=== PATIENT | female | born 1960 | race Caucasian/White ===

== ENCOUNTER → 2016-05-02 | Outpatient (CLI) | payer BC | LOC: MC.RAD 11:20 | DX: Z12.31 Encounter for screening mammogram for malignant neoplasm of breast (principal) ==

== ENCOUNTER → 2017-05-05 | Outpatient (CLI) | payer BC | LOC: MC.RAD 07:00 | DX: Z12.31 Encounter for screening mammogram for malignant neoplasm of breast (principal) ==

== ENCOUNTER 2017-07-13 06:47 | Emergency (ER) | payer BC ==
[~2017-07-13] VITALS: Ht 165.1 cm; Wt 58.2 kg
[2017-07-13 06:55] VITALS: TEMP 97.8
[2017-07-13 07:49] LABS: BASO % 0.6 % (0.0-2.0); EOS # 0.1 (0.0-0.7); EOS % 1.3 % (0-4.0); GRAN # 3.5 (1.4-6.5); HEMATOCRIT 37.4 % (37.0-47.0); HEMOGLOBIN 12.7 g/dl (12.5-16.0); LYMPH # 1.3 (1.2-3.4); LYMPH % 25.4 % (20.0-51.0); MEAN CELL VOLUME 86 fl (80.0-100.0); MEAN CORPUSCULAR HEMOGLOBIN 29 pg (27.0-31.0); MEAN CORPUSCULAR HGB CONC 34 g/dl (33.0-37.0); MEAN PLATELET VOLUME 11.1 fl (7.4-10.4); MONO # 0.3 (0.1-0.6); MONO % 5.5 % (1.7-9.3); PLATELET COUNT 177 K/mm3 (130-400); RED BLOOD COUNT 4.34 M/mm3 (4.10-5.30); REDCELL DISTRIBUTION WIDTH-CV 13.6 % (11.5-14.5)
[2017-07-13 07:58] LABS: ALANINE AMINOTRANSFERASE 23 U/L (9-52); ALBUMIN 3.8 gm/dL (3.5-5.0); ALKALINE PHOSPHATASE 77 U/L (50-136); ANION GAP 11 mmol/L (7-16); AST,SGOT 18 U/L (15-37); BILIRUBIN,TOTAL 0.6 mg/dL (0.0-1.0); BLOOD UREA NITROGEN 17 mg/dL (7-17); CARBON DIOXIDE 28 mmol/L (22-30); CHLORIDE 102 mmol/L (98-107); CREATININE, serum 0.55 mg/dL (0.52-1.25); GLUCOSE 94 mg/dL (74-106); POTASSIUM 3.5 mmol/L (3.4-5.0); SODIUM 141 mmol/L (137-145); TOTAL PROTEIN 6.7 gm/dL (6.4-8.2)
[2017-07-13 08:12] LABS: C-REACTIVE PROTEIN < 0.5 mg/dL (0.0-0.9)
[2017-07-13 08:29] LABS: COLLECTION METHOD CLEAN CATCH
[2017-07-13 08:33] LABS: MUCOUS Present /lpf; PH 7 (5-8); SQUAMOUS EPITHELIAL 0-2 /hpf; URINE APPEARANCE Clear; URINE BACTERIA None Seen /hpf; URINE BILIRUBIN Negative (NEGATIVE); URINE BLOOD Negative (NEGATIVE); URINE COLOR Straw; URINE GLUCOSE Negative (NEGATIVE); URINE KETONE Negative (NEGATIVE); URINE LEUKOCYTE ESTERASE Negative (NEGATIVE); URINE NITRATE Negative (NEGATIVE); URINE PROTEIN(semi-quant) Negative (NEGATIVE); URINE RBC None Seen /hpf; URINE UROBILINOGEN Negative (NEGATIVE)
[2017-07-13] MEDS ORDERED: ANTIVERT 25MG25 MG PO (09:01)
[2017-07-13 09:13] VITALS: BP 107/72; PULSE 86
== END 2017-07-13 09:14 | disposition home or self-care (01) ==
LOC: COL.ER 06:47
PROVIDERS: Nurse Practitioner
DX: R42 Dizziness and giddiness (principal); Z90.710 Acquired absence of both cervix and uterus
CPT/HCPCS: J2405; J7030

== ENCOUNTER → 2018-05-25 | Outpatient (CLI) | payer BC ==
[~2018-05-25] MED LIST: ANTIVERT 25MG25 MG PO
== END ==
LOC: COL.RAD 05-18 14:45
DX: M75.111 Incomplete rotator cuff tear or rupture of right shoulder, not specified as traumatic (principal); M25.411 Effusion, right shoulder

== ENCOUNTER → 2018-06-02 | Outpatient (CLI) | payer BC | LOC: MC.RAD 08:15 | DX: Z12.31 Encounter for screening mammogram for malignant neoplasm of breast (principal) ==

== ENCOUNTER → 2019-07-12 | Outpatient (CLI) | payer BC | LOC: MC.RAD 06-10 08:30 | DX: Z12.31 Encounter for screening mammogram for malignant neoplasm of breast (principal) ==

== ENCOUNTER → 2020-02-09 | Outpatient (CLI) | payer BC | LOC: COL.RAD 15:04 | DX: R59.0 Localized enlarged lymph nodes (principal) ==

== ENCOUNTER 2020-05-04 06:56 | Observation (INO) | payer BC ==
[~2020-05-04] VITALS: Ht 172.7 cm; Wt 65.9 kg
[2020-05-04 07:35] LABS: BASO % 0.7 % (0.0-2.0); EOS # 0.1 (0.0-0.7); EOS % 3.2 % (0-4.0); GRAN # 2.4 (1.4-6.5); HEMATOCRIT 37.1 % (37.0-47.0); LYMPH # 1.4 (1.2-3.4); LYMPH % 33.2 % (20.0-51.0); MEAN CELL VOLUME 84 fl (80.0-100.0); MEAN CORPUSCULAR HEMOGLOBIN 27 pg (27.0-31.0); MEAN CORPUSCULAR HGB CONC 32 g/dl (33.0-37.0); MEAN PLATELET VOLUME 11.2 fl (7.4-10.4); MONO # 0.3 (0.1-0.6); MONO % 6.7 % (1.7-9.3); PLATELET COUNT 155 K/mm3 (130-400); RED BLOOD COUNT 4.44 M/mm3 (4.10-5.30); REDCELL DISTRIBUTION WIDTH-CV 15.8 % (11.5-14.5)
[2020-05-04 07:39] LABS: INR 1.1 (0.8-3.0)
[2020-05-04 07:42] LABS: PARTIAL THROMBOPLASTIN TIME 34.2 SECONDS (26.0-37.0)
[2020-05-04 07:51] LABS: ALBUMIN 3.4 gm/dL (3.5-5.0); BILIRUBIN,TOTAL 0.6 mg/dL (0.0-1.0); CALCIUM 8.6 mg/dL (8.4-10.2); CREATININE, serum 0.58 (0.52-1.25); POTASSIUM 3.9 mmol/L (3.4-5.0); TOTAL PROTEIN 6.1 gm/dL (6.4-8.2)
[2020-05-04 09:05] LABS: COLLECTION METHOD CLEAN CATCH
[2020-05-04 09:13] LABS: PH 8 (5-8); SQUAMOUS EPITHELIAL 0-2 /hpf; URINE APPEARANCE Clear; URINE BACTERIA None Seen /hpf; URINE BILIRUBIN Negative (NEGATIVE); URINE BLOOD Negative (NEGATIVE); URINE COLOR Straw; URINE GLUCOSE Negative (NEGATIVE); URINE KETONE Negative (NEGATIVE); URINE LEUKOCYTE ESTERASE Negative (NEGATIVE); URINE NITRATE Negative (NEGATIVE); URINE PROTEIN(semi-quant) Negative (NEGATIVE); URINE RBC 0-2 /hpf; URINE UROBILINOGEN Negative (NEGATIVE); URINE WBC 0-2 /hpf
[2020-05-04 09:24] LABS: ALCOHOL(ethanol),MEDICAL < 10 mg/dL
[2020-05-04 09:36] LABS: TRICYCLIC ANTIDEPRESS URINE NEGATIVE
--- NOTE | 2020-05-04 12:00 | NUR ---
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
[2020-05-04 12:03] VITALS: BP 112/68; PULSE 79; TEMP 98.3
[2020-05-04 17:37] VITALS: BP 127/70; PULSE 93; TEMP 98.4
[2020-05-04 20:15] VITALS: BP 130/71; PULSE 85; TEMP 98.2
--- NOTE | 2020-05-04 22:49 | NUR ---
Awake, alert, oriented x 4, able to make all needs known, had nausea/vomit x 1 earlier this evening, responded well to zofran, vs stable, telemetry in use NSR, call morris w/i reach, neuro checks completed as ordered.
[2020-05-05 00:59] VITALS: BP 107/63; PULSE 72; TEMP 98
[2020-05-05 05:23] VITALS: BP 119/67; PULSE 78; TEMP 98.3
--- NOTE | 2020-05-05 07:00 | NUR ---
awake and eating breakfast, bedside shift report received from YAYA Nava and Ana RN
[2020-05-05 07:11] LABS: CHOLESTEROL RISK RATIO 3.2
[2020-05-05 07:19] LABS: BASO % 0.5 % (0.0-2.0); EOS # 0.1 (0.0-0.7); EOS % 1.3 % (0-4.0); GRAN # 3.8 (1.4-6.5); HEMATOCRIT 43.2 % (37.0-47.0); HEMOGLOBIN 13.8 g/dl (12.5-16.0); LYMPH # 1.8 (1.2-3.4); LYMPH % 29.8 % (20.0-51.0); MEAN CELL VOLUME 85 fl (80.0-100.0); MEAN CORPUSCULAR HEMOGLOBIN 27 pg (27.0-31.0); MEAN CORPUSCULAR HGB CONC 32 g/dl (33.0-37.0); MEAN PLATELET VOLUME 11.7 fl (7.4-10.4); MONO # 0.4 (0.1-0.6); MONO % 6.2 % (1.7-9.3); PLATELET COUNT 180 K/mm3 (130-400)
--- NOTE | 2020-05-05 07:30 | NUR ---
full assessment completed, see interventions for further info, denies needs
[2020-05-05 09:00] VITALS: BP 119/67; PULSE 91; TEMP 98.3
--- NOTE | 2020-05-05 09:04 | NUR ---
physical therapy in and worked with patient
--- NOTE | 2020-05-05 09:45 | NUR ---
physical therapy in to work with patient, ambulated in emery with therapy, in to visit, reviewed side effects of plavix with , patient is very forgetful and doens't remember what meds she was on prior to hospitalization, explained to them she would have a ILIR and that she needed to be NPO, verbalizes understanding, states she has difficulty with anesthesia and "waking" up, notified YAYA Street in skill [employer] regarding this and when and what she ate last, she will notify anesthesia,
--- NOTE | 2020-05-05 10:45 | NUR ---
speech therapy in to work with patient
[2020-05-05] MEDS ORDERED: PLAVIX 75MG TAB75 MG PO (11:24)
[2020-05-05] MEDS ORDERED: LIPITOR 40MG TA40 MG PO (11:24)
[2020-05-05] MEDS ORDERED: ASPIRIN 81M81 MG/TA2 PO (11:25)
--- NOTE | 2020-05-05 11:30 | NUR ---
Dr Sy and care team in to see patient, will plan discharge later today
[2020-05-05 12:40] VITALS: BP 124/73; PULSE 84; TEMP 98.4
--- NOTE | 2020-05-05 12:54 | NUR ---
resting in bed waiting for lunch, dietary notified and will place it in a marcial mode
--- NOTE | 2020-05-05 14:30 | NUR ---
telemetry and INT discontinued, home care instructions given to patient and her and verbalizes understanding,
--- NOTE | 2020-05-05 14:50 | NUR ---
discharged per WC
--- NOTE | 2020-05-05 14:52 | NUR ---
Rn Resource Nurse met with patient to discuss discharge planning as patient will discharge home today. Patient's , Ortega (ph#[phone]) is at bedside and often answered questions for patient. [facility] and sees Dr. Gonzales for primary care. Patient does not use any DME and reports independence with ADLS. Patient was unsure if she has DPOA-HC but Orte[facility] advised that they have DPOA-HC completed in their trust. SW reviewed PT recommendation for outpatient PT upon discharge and Orte[facility] states they will set up appointment and have orders patient's discharge paperwork. SW offered to schedule first appointment but patient declined. Patient discharging with her today.
== END 2020-05-05 14:50 | disposition home or self-care (01) ==
LOC: COL.ER 06:56 → MEDICAL 10:12 → EDBEDREQ 11:04 → MEDICAL 05-05 14:50
PROVIDERS: Emergency Medicine; ADMIT Hospitalist
DX: I63.9 Cerebral infarction, unspecified (principal); R41.82 Altered mental status, unspecified; G43.909 Migraine, unspecified, not intractable, without status migrainosus; Z90.710 Acquired absence of both cervix and uterus; Z79.899 Other long term (current) drug therapy
CPT/HCPCS: 99222-AI; A9585; G0378; J1650; J2405; J3480; Q9967

== ENCOUNTER 2020-05-08 07:57 | Outpatient (CLI) | payer BC ==
[2020-05-08] VITALS (7 sets, daily range): BP systolic 93–126; BP diastolic 75–85; PULSE 75–92; TEMP 98
[~2020-05-08] VITALS: Ht 172.7 cm; Wt 69.4 kg
[~2020-05-08 07:57] MED LIST changes: +ASPIRIN 81M81 MG/TA2 PO; +LIPITOR 40MG TA40 MG PO; +PLAVIX 75MG TAB75 MG PO
[2020-05-08] MEDS ORDERED: EPA FISH OIL1 SGL PO (08:39)
[2020-05-08 08:41] LABS: HEMATOCRIT 46.1 % (37.0-47.0); MEAN CELL VOLUME 83 fl (80.0-100.0); MEAN CORPUSCULAR HEMOGLOBIN 27 pg (27.0-31.0); MEAN CORPUSCULAR HGB CONC 33 g/dl (33.0-37.0); MEAN PLATELET VOLUME 10.8 fl (7.4-10.4); PLATELET COUNT 183 K/mm3 (130-400); RED BLOOD COUNT 5.55 M/mm3 (4.10-5.30); REDCELL DISTRIBUTION WIDTH-CV 16.1 % (11.5-14.5)
[2020-05-08 08:49] LABS: INR 1.1 (0.8-3.0); PROTHROMBIN TIME 11.8 SECONDS (9.7-12.8)
[2020-05-08 08:56] LABS: CALCIUM 9.9 mg/dL (8.4-10.2); CREATININE, serum 0.79 (0.52-1.25); POTASSIUM 3.9 mmol/L (3.4-5.0)
--- NOTE | 2020-05-08 12:15 | NUR ---
DC instructions reviewed with pt, she expresses understanding. She has tolerated PO without issue. No nausea or vomiting following anesthesia. Gait steady in room. IV DC'd with catheter intact. She is assisted out to 's car by wheelchair.
== END 2020-05-08 12:10 | disposition home or self-care (01) ==
LOC: COL.RAD 07:57
PROVIDERS: Internal Medicine Cardiovascular Disease
DX: I63.89 Other cerebral infarction (principal)
CPT/HCPCS: J2704; J7120

== ENCOUNTER → 2020-07-12 | Outpatient (CLI) | payer BC ==
[~2020-07-12] MED LIST changes: +EPA FISH OIL1 SGL PO
== END ==
LOC: MC.RAD 09:14
DX: Z12.31 Encounter for screening mammogram for malignant neoplasm of breast (principal)

== ENCOUNTER 2020-08-10 09:45 | Outpatient (RCR) | payer BC | END 2020-08-16 | disposition home or self-care (01) | LOC: WSST | DX: R41.841 Cognitive communication deficit (principal) ==

== ENCOUNTER 2020-10-12 08:57 | Emergency (ER) | payer BC ==
[~2020-10-12] VITALS: Ht 172.7 cm; Wt 68.2 kg
[2020-10-12 09:01] VITALS: TEMP 97.8
[2020-10-12 09:18] LABS: BASO % 0.4 % (0.0-2.0); EOS # 0.1 (0.0-0.7); GRAN # 2.9 (1.4-6.5); GRAN % 56.8 % (42.2-75.2); HEMATOCRIT 44.4 % (37.0-47.0); HEMOGLOBIN 14.6 g/dl (12.5-16.0); LYMPH # 1.7 (1.2-3.4); LYMPH % 33.3 % (20.0-51.0); MEAN CELL VOLUME 89 fl (80.0-100.0); MEAN CORPUSCULAR HEMOGLOBIN 29 pg (27.0-31.0); MEAN CORPUSCULAR HGB CONC 33 g/dl (33.0-37.0); MEAN PLATELET VOLUME 11.6 fl (7.4-10.4); MONO # 0.4 (0.1-0.6); MONO % 7.3 % (1.7-9.3); PLATELET COUNT 148 K/mm3 (130-400); RED BLOOD COUNT 4.97 M/mm3 (4.10-5.30); REDCELL DISTRIBUTION WIDTH-CV 14.7 % (11.5-14.5)
[2020-10-12 09:25] LABS: PROTHROMBIN TIME 11.1 SECONDS (9.7-12.8)
[2020-10-12 09:31] LABS: ALANINE AMINOTRANSFERASE 21 U/L (4-34); ALBUMIN 4.4 gm/dL (3.5-5.0); ALKALINE PHOSPHATASE 94 U/L (50-136); ANION GAP 7 mmol/L (7-16); AST,SGOT 27 U/L (15-37); BILIRUBIN,TOTAL 0.9 mg/dL (0.0-1.0); BLOOD UREA NITROGEN 17 mg/dL (7-17); C-REACTIVE PROTEIN < 0.5 mg/dL (0.0-0.9); CALCIUM 9.3 mg/dL (8.4-10.2); CARBON DIOXIDE 27 mmol/L (22-30); CHLORIDE 104 mmol/L (98-107); CREATININE, serum 0.58 (0.52-1.25); GLUCOSE 112 mg/dL (74-106); POTASSIUM 3.8 mmol/L (3.4-5.0); SODIUM 138 mmol/L (137-145); TOTAL PROTEIN 7.3 gm/dL (6.4-8.2)
[2020-10-12 11:26] VITALS: BP 130/80; PULSE 83
== END 2020-10-12 11:28 | disposition home or self-care (01) ==
LOC: COL.ER 08:57
PROVIDERS: Family Medicine
DX: R41.82 Altered mental status, unspecified (principal); R41.3 Other amnesia; Z86.73 Personal history of transient ischemic attack (TIA), and cerebral infarction without residual deficits; G43.909 Migraine, unspecified, not intractable, without status migrainosus; Z79.02 Long term (current) use of antithrombotics/antiplatelets; Z79.82 Long term (current) use of aspirin
CPT/HCPCS: Q9967

== ENCOUNTER → 2021-07-18 | Outpatient (CLI) | payer BC | LOC: MC.RAD 14:13 | DX: Z12.31 Encounter for screening mammogram for malignant neoplasm of breast (principal) ==

== ENCOUNTER → 2023-08-12 | Outpatient (CLI) | payer BC | LOC: MC.RAD 08:15 → COL.RAD 23:59 → MC.RAD 08-26 08:15 | DX: Z12.31 Encounter for screening mammogram for malignant neoplasm of breast (principal) ==